=== PATIENT | female | born 1945 | race Two or more races ===

== ENCOUNTER 2019-03-31 12:30 | Emergency (ER) | payer MEDICARE ==
[2019-03-31] MEDS ORDERED: METOCLOPRAMIDE HCL INJ/PF 10 MG/2 ML SDV IV ONE (13:30)
--- NOTE | 2019-03-31 13:31 | ER Document Report ---
ED Medical Screen (RME) - General Chief Complaint: High Blood Sugar Stated Complaint: BLOOD SUGAR PROBLEMS Time Seen by Provider: 03/31/19 13:18 Notes: Patient is a 73-year-old female, noncompliant with her medications who presents to the emergency department with a high blood sugar reading. She went to urgent care and was referred here. Patient has mild abdominal pain. Exam: Soft mildly tender mid upper abdomen. Blood sugar reading high on glucometer. I have greeted and performed a rapid initial assessment of this patient. A comprehensive ED assessment and evaluation of the patient, analysis of test results and completion of medical decision making process will be conducted by an additional ED providers. Past Medical History - Social History Chew tobacco use (# tins/day): No Frequency of alcohol use: None Drug Abuse: None Physical Exam - Vital signs Vitals: Temp Pulse Resp BP Pulse Ox 98.8 F 105 H 16 108/54 L 97 03/31/19 12:34 03/31/19 12:34 03/31/19 12:34 03/31/19 12:34 03/31/19 12:34 Course - Vital Signs Vital signs: Temp Pulse Resp BP Pulse Ox 98.8 F 105 H 16 108/54 L 97 03/31/19 12:34 03/31/19 12:34 03/31/19 12:34 03/31/19 12:34 03/31/19 12:34
[2019-03-31] MEDS: [UNRECOGNIZED DRUG - OTHER] IV PRN ×2 (13:52→20:05)
[2019-03-31 14:05] LABS: VENOUS BLOOD BASE EXCESS 1.8 mmol/L; VENOUS BLOOD HCO3 25.1 mmol/L (20-32); VENOUS BLOOD PCO2 35.5 mmHg (35-63); VENOUS BLOOD PH 7.47 (7.30-7.42)
[2019-03-31 14:09] LABS: ABSOLUTE BASOPHILS # (AUTO) 0.1 10^3/uL (0.0-0.2); ABSOLUTE LYMPHOCYTES (AUTO) 1.2 10^3/uL (0.5-4.7); ABSOLUTE MONOCYTES (AUTO) 0.5 10^3/uL (0.1-1.4); ABSOLUTE NEUT (AUTO) 9.6 10^3/uL (1.7-8.2); BASOPHILS % (AUTO) 0.7 % (0-2); EOSINOPHILS % (AUTO) 0.2 % (0-6); HEMATOCRIT 37.4 % (36.0-47.0); HEMOGLOBIN 12.7 g/dL (12.0-15.5); LYMPHOCYTES % (AUTO) 10.4 % (13-45); MEAN CORPUSCULAR HEMOGLOBIN 29.8 pg (27.0-33.4); MEAN CORPUSCULAR HGB CONC 33.8 g/dL (32.0-36.0); MEAN CORPUSCULAR VOLUME 88 fl (80-97); MONOCYTES % (AUTO) 4.7 % (3-13); PLATELET COUNT 361 10^3/uL (150-450); RED BLOOD COUNT 4.25 10^6/uL (3.72-5.28); TOTAL CELLS COUNTED % (AUTO) 100 %; WHITE BLOOD COUNT 11.4 10^3/uL (4.0-10.5)
[2019-03-31 14:25] LABS: ALBUMIN 3.9 g/dL (3.5-5.0); ALKALINE PHOSPHATASE 235 U/L (38-126); ANION GAP 18 (5-19); ASPARTATE AMINO TRANSFERASE 15 U/L (14-36); BILIRUBIN,DIRECT 0.3 mg/dL (0.0-0.4); BILIRUBIN,TOTAL 0.9 mg/dL (0.2-1.3); BLOOD UREA NITROGEN 19 mg/dL (7-20); CALCIUM 9.7 mg/dL (8.4-10.2); CARBON DIOXIDE 23 mmol/L (22-30); CHLORIDE 83 mmol/L (98-107); POTASSIUM 3.7 mmol/L (3.6-5.0); TOTAL PROTEIN 7.5 g/dL (6.3-8.2)
[2019-03-31 14:39] LABS: GLUCOSE 730 mg/dL (75-110)
--- NOTE | 2019-03-31 17:50 | EKG REPORT ---
SEVERITY:- OTHERWISE NORMAL ECG - SINUS RHYTHM MINIMAL ST ELEVATION, INFERIOR LEADS , CLINICAL CORRELATION NEEDED. IVCD, NONSPECIFIC. : Confirmed by: Joce Parkinson MD 31-Mar-2019 17:49:46
[2019-03-31] MEDS ORDERED: INSULIN REG, HUMAN 100 UNIT/ML 3 ML VIAL (PYX) IV ONE (17:51)
--- NOTE | 2019-03-31 18:14 | ER Document Report ---
ED General - General Chief Complaint: High Blood Sugar Stated Complaint: BLOOD SUGAR PROBLEMS Time Seen by Provider: 03/31/19 13:18 Information source: Patient TRAVEL OUTSIDE OF THE [place] IN LAST 30 DAYS: No - HPI Patient complains to provider of: Try salty tasting mouth after eating a biscuit at [employer] this morning Onset: Other - She reports high blood sugars have been increasing over the last 2 weeks but patient has been a diabetic while living in [place] for 4 years. She retired as a Medicaid officer for the state. Patient has been taking Farx iga metformin 1000 mg twice daily. She moved here in October 2018 and has not gotten a primary provider yet. She went to urgent care today where her blood sugar was very high. Complains of 1 week ago having vaginal yeast infection which was treated by urgent care. Quality of pain: No pain Severity: Mild Pain Level: 0 Associated symptoms: Other - Initially mild abdominal pain but at this time none Exacerbated by: Denies Similar symptoms previously: No Recently seen / treated by doctor: Yes - Urgent care - Related Data Allergies/Adverse Reactions: No Known Allergies Allergy (Unverified 03/31/19 20:20) Past Medical History - General Information source: Patient - Social History Smoking Status: Never Smoker Chew tobacco use (# tins/day): No Frequency of alcohol use: None Drug Abuse: None Lives with: Alone Family History: Reviewed & Not Pertinent Patient has suicidal ideation: No Patient has homicidal ideation: No Endocrine Medical History: Reports: Hx Diabetes Mellitus Type 2 - Immunizations Immunizations up to date: Yes Review of Systems - Review of Systems Constitutional: No symptoms reported EENT: No symptoms reported, Other - Dry mouth for 2 weeks and salty taste after drinking sweet tea Cardiovascular: No symptoms reported Respiratory: No symptoms reported Gastrointestinal: Abdominal pain, Other - Patient with mild abdominal pain but at this time none. denies: No symptoms reported Genitourinary: No symptoms reported Female Genitourinary: No symptoms reported Musculoskeletal: No symptoms reported Skin: No symptoms reported Hematologic/Lymphatic: No symptoms reported Neurological/Psychological: No symptoms reported Physical Exam - Vital signs Vitals: Temp Pulse Resp BP Pulse Ox 98.8 F 105 H 16 108/54 L 97 03/31/19 12:34 03/31/19 12:34 03/31/19 12:34 03/31/19 12:34 03/31/19 12:34 - Cardiovascular Rhythm: Tachycardia Course - Vital Signs Vital signs: Temp Pulse Resp BP Pulse Ox 98.8 F 105 H 18 106/50 L 99 03/31/19 12:34 03/31/19 12:34 03/31/19 20:01 03/31/19 20:01 03/31/19 20:01 - Laboratory Result Diagrams: 03/31/19 13:49 03/31/19 13:49 Laboratory results interpreted by me: 03/31/19 03/31/19 03/31/19 13:49 13:49 13:49 WBC 11.4 H Lymph % (Auto) 10.4 L Absolute Neuts (auto) 9.6 H Seg Neutrophils % 84.0 H VBG pH 7.47 H Sodium 124.3 L Chloride 83 L Est GFR ( Amer) 54 L Est GFR (MDRD) Non-Af 44 L Glucose 730 H* POC Glucose Alkaline Phosphatase 235 H Urine Glucose (UA) Urine Ketones Urine Blood Ur Leukocyte Esterase 03/31/19 03/31/19 13:49 21:36 WBC Lymph % (Auto) Absolute Neuts (auto) Seg Neutrophils % VBG pH Sodium Chloride Est GFR ( Amer) Est GFR (MDRD) Non-Af Glucose POC Glucose 303 H Alkaline Phosphatase Urine Glucose (UA) >=500 H Urine Ketones TRACE H Urine Blood SMALL H Ur Leukocyte Esterase MODERATE H 03/31/19 21:49 stick blood sugar much improved at 303 - EKG Interpretation by Me EKG shows normal: Sinus rhythm Rate: Normal, Tachycardia Rhythm: NSR Additional EKG results interpreted by me: 03/31/19 18:21 I agree with EKG with ST elevation to inferior leads and also V5 and V6 Critical Care Note - Critical Care Note Total time excluding time spent on procedures (mins): 60 Discharge - Discharge Clinical Impression: Hyperglycemia, UTI (urinary tract infection) Condition: Good Disposition: HOME, SELF-CARE Instructions: Urinary Tract Infection ([facility]) Additional Instructions: Follow-up with personal doctor this week return to ER as needed take medicines as directed encourage fluids avoid sweet tea or other carbonated drinks; try to drink more water Prescriptions: Ciprofloxacin HCl [Cipro 500 mg Tablet] 500 mg PO BID #20 tablet Glyburide [Diabeta 5 mg Tablet] 5 mg PO QAM #30 tablet
[2019-03-31 20:31] LABS: APPEARANCE,URINE CLEAR; BILIRUBIN,URINE NEGATIVE (NEGATIVE); COLOR,URINE STRAW; GLUCOSE, URINE >=500 mg/dL (NEGATIVE); KETONES,URINE TRACE mg/dL (NEGATIVE); LEUKOCYTE ESTERASE,URINE MODERATE (NEGATIVE); NITRITE,URINE NEGATIVE (NEGATIVE); PROTEIN,URINE NEGATIVE (NEGATIVE); URINE SPECIFIC GRAVITY 1.027; UROBILINOGEN,URINE NEGATIVE mg/dL (<2.0)
[2019-03-31] MEDS ORDERED: CIPROFLOXACIN HCL 500 MG TABLET PO ONE (22:00)
[2019-03-31 22:11] VITALS: BP 116/52
== END 2019-03-31 22:21 | disposition home or self-care (01) ==
LOC: ER 12:30
DX: E11.65 Type 2 diabetes mellitus with hyperglycemia (principal); N39.0 Urinary tract infection, site not specified; Z79.84 Long term (current) use of oral hypoglycemic drugs
CPT/HCPCS: 93005; 99285; 96361; 96374; 36415; 82962; 82550; 83690; 85025; 80053; 81001; 84484; 82803; 93010; A9270 ×2; J2765; J1815